=== PATIENT | female | born 1990 | race Caucasian/White ===

== ENCOUNTER → 2024-02-23 12:22 | Outpatient (REF) | payer OTHER, SELFPAY | LOC: RAD 12:22 | PROVIDERS: ATTENDING PHYSICIAN Family Medicine | DX: J32.9 Chronic sinusitis, unspecified (principal) | CPT/HCPCS: 70486 ==

== ENCOUNTER 2025-07-30 12:25 | Emergency (ER) | payer OTHER, SELFPAY ==
[2025-07-30 12:29] VITALS: BP 121/74
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
[2025-07-30 19:20] VITALS: BP 148/91
== END 2025-07-30 19:24 | disposition home or self-care (01) ==
LOC: EMR 12:25
PROVIDERS: EMERGENCY PHYSICIAN Student in an Organized Health Care Education/Training Program; FAMILY PHYSICIAN Internal Medicine
DX: R21 Rash and other nonspecific skin eruption (principal)
CPT/HCPCS: 99284; 70450

== ENCOUNTER → 2025-08-20 14:54 | Outpatient (REF) | payer OTHER, SELFPAY | LOC: RAD 14:54 | PROVIDERS: ATTENDING PHYSICIAN Specialist | DX: S00.35XA Superficial foreign body of nose, initial encounter (principal); S00.551A Superficial foreign body of lip, initial encounter | CPT/HCPCS: 70150 ==